=== PATIENT | male | born 1950 | race Caucasian/White ===

== ENCOUNTER 2017-07-30 15:35 | Emergency (ER) | payer MEDICARE ==
[2017-07-30 15:55] VITALS: BP 148/82
--- NOTE | 2017-07-30 16:24 | ED ---
Back Pain - HPI Summary HPI Summary: 67 yr old male with the complaint of right upper back pain, onset 5 days ago. He was out doing yard work all day on Friday, and had onset of pain in the right posterior chest wall that evening. Pain not better or worse with movement , no pain with breathing. No associated SOB. he has not had any fever or chills or coughing. He states at times the pain is sharp and then ache like. He points to the location of the pain in the right lower posterior axillary line. - History of Current Complaint Chief Complaint: UCBackPain Stated Complaint: BACK PAIN Time Seen by Provider: 07/30/17 16:06 Pain Intensity: 5 - Allergies/Home Medications Allergies/Adverse Reactions: Allergies Allergy/AdvReac Type Severity Reaction Status Date / Time No Known Allergies Allergy Verified 07/30/17 15:55 Home Medications: Home Medications Acetaminophen TAB* [Tylenol TAB*] 975 mg PO Q6H PRN 07/30/17 [History Confirmed 07/30/17] Ibuprofen TAB* [Motrin TAB* 600 MG] 600 mg PO Q8H PRN 07/30/17 [History Confirmed 07/30/17] PMH/Surg Hx/FS Hx/Imm Hx Cardiovascular History: Reports: Hx Hypertension Respiratory History: Reports: Hx Chronic Obstructive Pulmonary Disease (COPD) - Surgical History Surgery Procedure, Year, and Place: Left Carotid, 2015, [facility]; Quadruple Bypass, 2014, [facility]; Stents Left Leg, ~2007, [facility] Infectious Disease History: No Infectious Disease History: Denies: Traveled Outside the [place] in Last 30 Days - Family History Known Family History: Positive: Cardiac Disease, Hypertension - Social History Occupation: Retired Alcohol Use: Rare Substance Use Type: Reports: None Smoking Status (MU): Former Smoker Type: Cigarettes Amount Used/How Often: 2 PPD Length of Time of Smoking/Using Tobacco: 50 Years Have You Smoked in the Last Year: No Review of Systems Negative: Palpitations, Chest Pain Negative: Shortness Of Breath, Cough Positive: Other - right lateral back pain over the right posterior ribs. Negative: Rash All Other Systems Reviewed And Are Negative: Yes Physical Exam Triage Information Reviewed: Yes Vital Signs On Initial Exam: Initial Vitals Temp Pulse Resp BP Pulse Ox 97.9 F 59 18 148/82 99 07/30/17 15:51 07/30/17 15:51 07/30/17 15:51 07/30/17 15:51 07/30/17 15:51 Vital Signs Reviewed: Yes Appearance: Positive: Well-Appearing, No Pain Distress Skin: Positive: Warm, Skin Color Reflects Adequate Perfusion Head/Face: Positive: Normal Head/Face Inspection Eyes: Positive: EOMI ENT: Positive: Normal ENT inspection Neck: Positive: Nontender Respiratory/Lung Sounds: Positive: Clear to Auscultation, Breath Sounds Present Cardiovascular: Positive: RRR. Negative: Murmur Abdomen Description: Positive: Nontender. Negative: CVA Tenderness (R), CVA Tenderness (L), Distended Musculoskeletal: Positive: Strength/ROM Intact Neurological: Positive: Sensory/Motor Intact, Alert, Oriented to Person Place, Time, CN Intact II-III, Normal Gait, Speech Normal Psychiatric: Positive: Normal Diagnostics - Vital Signs Vital Signs Temp Pulse Resp BP Pulse Ox 07/30/17 15:51 97.9 F 59 18 148/82 99 - Laboratory Lab Statement: Any lab studies that have been ordered have been reviewed, and results considered in the medical decision making process. Back Pain Course/Dx - Course Course Of Treatment: 67 yr old with negative chest xray. Symptoms may be musculolskeletal in nature. Not pleuritic, and not associated with anything. If symptoms persist or worsen should go to the ER. BP recheck by his PMD. - Diagnoses Provider Diagnoses: Upper back pain on right side, Hypertension Discharge - Sign-Out/Discharge Documenting (check all that apply): Discharge/Admit/Transfer - Discharge Plan Condition: Good Disposition: HOME Patient Education Materials: Back Pain (ED), Hypertension (ED) Referrals: Samia Mejia MD [Primary Care Provider] - 1 Day Additional Instructions: For any change, worsening of symptoms you should go to the ER. - Billing Disposition and Condition Condition: GOOD Disposition: HOME
--- NOTE | 2017-07-30 16:37 | RAD ---
HISTORY: Right posterior thoracic pain COMPARISONS: February 04, 2016 VIEWS: 4: Frontal dual-energy and lateral views of the chest. FINDINGS: CARDIOMEDIASTINAL SILHOUETTE: The cardiomediastinal silhouette is normal. CIRILO: The cirilo are normal. PLEURA: The costophrenic angles are sharp. No pleural abnormalities are noted. LUNG PARENCHYMA: There is hyperinflation with flattening of the diaphragm and expansion of the AP diameter of the chest. ABDOMEN: The upper abdomen is clear. There is no subphrenic gas. BONES AND SOFT TISSUES: The patient is status post median sternotomy. OTHER: None. IMPRESSION: HYPERINFLATION. NO ACTIVE CARDIOPULMONARY DISEASE.
== END 2017-07-30 16:52 | disposition home or self-care (01) ==
LOC: UCCORT 15:35
DX: M54.6 Pain in thoracic spine (principal); I10 Essential (primary) hypertension; Z87.891 Personal history of nicotine dependence
CPT/HCPCS: 71046; 99212; G0463

== ENCOUNTER 2018-12-21 17:55 | Emergency (ER) | payer MEDICARE ==
--- NOTE | 2018-12-21 20:11 | UC ---
Hand/Wrist HPI - HPI Summary HPI Summary: 68-year-old male presents for concerns for infection of a laceration he sustained to the left ring finger in 12/02/2018. States he accidentally cut the dorsal aspect of his left ring finger over the PIP on a metal clasp. States he cleaned the wound and was applying antibiotic ointment and performing dressing changes couple times a day. Approximately one week ago he started noticing redness and swelling of the PIP joint with purulent drainage coming from the wound. Reports limited range of motion in that finger. Denies fever, chills, numbness, or tingling. - History Of Current Complaint Chief Complaint: UCLaceration Stated Complaint: LEFT FINGER LACERATION Time Seen by Provider: 12/21/18 20:06 Hx Obtained From: Patient Pain Intensity: 0 - Allergies/Home Medications Allergies/Adverse Reactions: Allergies Allergy/AdvReac Type Severity Reaction Status Date / Time No Known Allergies Allergy Verified 12/21/18 18:22 Home Medications: Home Medications Aspirin EC TAB* [Ecotrin EC Low Dose 81 MG*] 81 mg PO DAILY 12/21/18 [History Confirmed 12/21/18] Budesonide/Formote 160/4.5(NF) [Symbicort 160/4.5 (NF)] 2 puff INH BID 12/21/18 [History Confirmed 12/21/18] Clopidogrel TAB* [Plavix TAB*] 75 mg PO DAILY 12/21/18 [History Confirmed ] Fenofibrate 145 mg PO DAILY 12/21/18 [History Confirmed 12/21/18] Folic Acid TAB* [Folvite TAB*] 1 tab BID 12/21/18 [History Confirmed 12/21/18] Isosorbide Mononitrate ER TAB* [Imdur ER TAB*] 30 mg PO DAILY 12/21/18 [History Confirmed 12/21/18] Losartan TAB* [Cozaar TAB*] 50 mg DAILY 12/21/18 [History Confirmed 12/21/18] Pravastatin Sodium [Pravachol] 1 tab DAILY 12/21/18 [History Confirmed 12/21/18] Tamsulosin CAP* [Flomax CAP*] 10 mg PO DAILY 12/21/18 [History Confirmed ] PMH/Surg Hx/FS Hx/Imm Hx Endocrine History: Dyslipidemia Cardiovascular History: Hypertension, Myocardial Infarction Respiratory History: COPD Other GI/ History: BPH - Surgical History Surgical History: Yes Surgery Procedure, Year, and Place: Left Carotid, 2016, [facility]; Quadruple Bypass, 2015, [facility]; Stents Left Leg, ~2007, [facility] - Family History Known Family History: Positive: Cardiac Disease, Hypertension - Social History Occupation: Retired Lives: With Family Alcohol Use: None Substance Use Type: None Smoking Status (MU): Heavy Every Day Tobacco Smoker Type: Cigarettes Amount Used/How Often: 1 PPD Length of Time of Smoking/Using Tobacco: 50 Years Have You Smoked in the Last Year: No - Immunization History Most Recent Influenza Vaccination: Fall 2014 Most Recent Tetanus Shot: 11/03/15 Td 08/24/12 Tdap Most Recent Pneumonia Vaccination: 11/03/15 PVC13 Review of Systems All Other Systems Reviewed And Are Negative: Yes Constitutional: Negative: Fever, Chills Skin: Positive: Other - See HPI Respiratory: Positive: Negative Cardiovascular: Positive: Negative Gastrointestinal: Positive: Negative Genitourinary: Positive: Negative Motor: Negative: Weakness Neurovascular: Negative: Decreased Sensation Musculoskeletal: Positive: Arthralgia, Decreased ROM Neurological: Positive: Negative Is Patient Immunocompromised?: No Physical Exam - Summary Physical Exam Summary: GENERAL APPEARANCE: Well developed, well nourished, alert and cooperative, and appears to be in no acute distress. CARDIAC: Normal S1 and S2. No S3, S4 or murmurs. Rhythm is regular. There is no peripheral edema, cyanosis or pallor. Extremities are warm and well perfused. Capillary refill is less than 2 seconds. Peripheral pulses intact. LUNGS: Clear to auscultation without rales, rhonchi, wheezing or diminished breath sounds. ABDOMEN: Positive bowel sounds. Soft, nondistended, nontender. No guarding or rebound. No masses or hepatosplenomegally. MUSKULOSKELETAL: ROM intact to all extremities. No joint erythema or tenderness. Normal muscular development. Normal gait. EXTREMITIES: Linear laceration with poorly approximated wound margins and purulent drainage over the dorsal aspect of the PIP joint of the left ring finger. Tenderness, erythema, and mild-moderate edema of the PIP joint. Limited ROM. Circulation and sensation intact. SKIN: Skin normal color, texture and turgor. Triage Information Reviewed: Yes Vital Signs: Initial Vital Signs Temp 97.1 F 12/21/18 18:28 Pulse 65 10/21/19 18:28 Resp 16 12/21/18 18:28 BP 113/73 12/21/18 18:28 Pulse Ox 98 12/21/18 18:28 Vital Signs Reviewed: Yes Images Hands: 1 - Linear laceration with poorly approximated wound margins and purulent drainage. Tenderness, erythema, and mild-moderate edema of the PIP joint. Limited ROM. Diagnostics - Radiology No standard instances Radiology Interpretation Completed By: ED Physician - No acute fracture, dislocation, FB, or evidence of osteomyelitis. Hand/Wrist Course/Dx - Course Course Of Treatment: 68-year-old male presents for concerns for infection of a laceration he sustained to the left ring finger in 12/02/2018. States he accidentally cut the dorsal aspect of his left ring finger over the PIP on a metal clasp. States he cleaned the wound and was applying antibiotic ointment and performing dressing changes couple times a day. Approximately one week ago he started noticing redness and swelling of the PIP joint with purulent drainage coming from the wound. Reports limited range of motion in that finger. Denies fever, chills, numbness, or tingling. Afebrile. Vital signs stable. Patient had a linear laceration with poorly approximated wound margins and purulent drainage over the dorsal aspect of the PIP joint of the left ring finger. Tenderness, erythema, and mild-moderate edema of the PIP joint. Limited ROM. Circulation and sensation intact. Preliminary reading of the x-ray of the finger showed no evidence of fracture, dislocation, foreign body, or evidence of osteomyelitis. Reviewed results with the patient. We will start him on Augmentin 875 mg twice a day 10 days to treat for the wound infection. He was given a first dose in the clinic. He was placed in a finger splint by the RN. He is to follow-up with hand surgery in 3 days for further evaluation and treatment. Wound care, anticipatory guidance, and warning symptoms requiring immediate evaluation in the emergency were reviewed with the patient. Verbalizes understanding and agrees with plan of care. - Differential Dx/Diagnosis Differential Diagnosis/HQI/PQRI: Cellulitis, Other - wound infection, abscess, MRSA, osteomyelitis Provider Diagnosis: Open wound of finger, infected Discharge ED - Sign-Out/Discharge Documenting (check all that apply): Patient Departure All imaging exams completed and their final reports reviewed: No - Discharge Plan Condition: Stable Disposition: HOME Prescriptions: Amoxicillin/Clavulanate TAB* [Augmentin TAB 875*] 875 mg PO BID #20 tab Patient Education Materials: Wound Infection (ED) Referrals: No Primary Care Phys,NOPCP [Primary Care Provider] - Marquez Frank MD [Medical Doctor] - 3 Days Additional Instructions: The x-ray performed in the clinic today showed no evidence of a fracture, dislocation, foreign body, or evidence of infection of the bone. The x-ray will be reviewed by the radiologist tomorrow and if they see anything that we' ll change her plan of care we will contact you. Your wound appears to have become infected and we will start to on an antibiotic to treat the infection. Take Augmentin 875 mg twice daily for 10 days. Take with food to avoid upset stomach. Be sure to finish the entire course even if feeling better. We gave you your first dose in the clinic. Clean the wound twice daily with a mild soap and water. Apply a small amount of antibiotic ointment and keep covered with a dressing. Wear the splint that was applied to your finger for support and to prevent reopening of the wound. You may remove to clean the wound and for showering but should wear at all other times. Take acetaminophen (Tylenol) or ibuprofen (Advil, Motrin) according to directions as needed for pain. Follow-up with orthopedic surgery in 3 days for further evaluation and treatment. Call tomorrow morning for an appointment. Seek immediate medical attention the emergency room if you develop a fever greater than 100.5 F, severe pain that is not managed with pain medication, increased swelling of the finger, he developed numbness or tingling in the finger, or have any worsening of symptoms. - Billing Disposition and Condition Condition: STABLE Disposition: Home
[2018-12-21 20:59] VITALS: BP 148/84
[2018-12-21] MEDS ORDERED: Amoxicillin/Clavulanate TAB* 875 MG PO ONE (21:02)
--- NOTE | 2018-12-22 07:40 | UC ---
- Progress Note Progress Note: xray report left ring finger :IMPRESSION: SOFT TISSUE SWELLING, NO SPECIFIC EVIDENCE FOR OSTEOMYELITIS. IF THERE IS A HIGH CLINICAL INDEX OF SUSPICION FOR OSTEOMYELITIS CONSIDER AN MRI STUDY WITHOUT CONTRAST OR A THREE-PHASE BONE SCAN. Course/Dx - Diagnoses Provider Diagnoses: Open wound of finger, infected Discharge ED - Sign-Out/Discharge Documenting (check all that apply): Patient Departure All imaging exams completed and their final reports reviewed: Yes - Discharge Plan Condition: Stable Disposition: HOME Prescriptions: Amoxicillin/Clavulanate TAB* [Augmentin TAB 875*] 875 mg PO BID #20 tab Patient Education Materials: Wound Infection (ED) Referrals: Marquez Frank MD [Medical Doctor] - 3 Days No Primary Care Phys,NOPCP [Primary Care Provider] - Additional Instructions: The x-ray performed in the clinic today showed no evidence of a fracture, dislocation, foreign body, or evidence of infection of the bone. The x-ray will be reviewed by the radiologist tomorrow and if they see anything that we' ll change her plan of care we will contact you. Your wound appears to have become infected and we will start to on an antibiotic to treat the infection. Take Augmentin 875 mg twice daily for 10 days. Take with food to avoid upset stomach. Be sure to finish the entire course even if feeling better. We gave you your first dose in the clinic. Clean the wound twice daily with a mild soap and water. Apply a small amount of antibiotic ointment and keep covered with a dressing. Wear the splint that was applied to your finger for support and to prevent reopening of the wound. You may remove to clean the wound and for showering but should wear at all other times. Take acetaminophen (Tylenol) or ibuprofen (Advil, Motrin) according to directions as needed for pain. Follow-up with orthopedic surgery in 3 days for further evaluation and treatment. Call tomorrow morning for an appointment. Seek immediate medical attention the emergency room if you develop a fever greater than 100.5 F, severe pain that is not managed with pain medication, increased swelling of the finger, he developed numbness or tingling in the finger, or have any worsening of symptoms. - Billing Disposition and Condition Condition: STABLE Disposition: Home
== END 2018-12-21 21:17 | disposition home or self-care (01) ==
LOC: UCCORT 17:55
DX: S61.215A Laceration without foreign body of left ring finger without damage to nail, initial encounter (principal); I10 Essential (primary) hypertension; I25.2 Old myocardial infarction; J44.9 Chronic obstructive pulmonary disease, unspecified; E78.5 Hyperlipidemia, unspecified; N40.0 Benign prostatic hyperplasia without lower urinary tract symptoms; F17.210 Nicotine dependence, cigarettes, uncomplicated; Z79.82 Long term (current) use of aspirin; Z79.899 Other long term (current) drug therapy; Z79.02 Long term (current) use of antithrombotics/antiplatelets; L08.9 Local infection of the skin and subcutaneous tissue, unspecified; W45.8XXA Other foreign body or object entering through skin, initial encounter; Y92.9 Unspecified place or not applicable
CPT/HCPCS: 73140; 99213; A9270-GY; G0463